=== PATIENT | female | born 1975 | race Caucasian/White ===

== ENCOUNTER → 2020-12-02 | Outpatient (CLI) | payer OTHER | END | disposition home or self-care (01) | LOC: SRD 14:39 | PROVIDERS: ATTEND General Practice | DX: Z12.31 Encounter for screening mammogram for malignant neoplasm of breast (principal); N83.202 Unspecified ovarian cyst, left side | CPT/HCPCS: 76830-TC; 76857; 77067 ==

== ENCOUNTER 2020-12-18 09:08 | Outpatient (CLI) | payer OTHER ==
[2020-12-18 09:51] LABS: HEMATOCRIT 42.9 % (36-48); HEMOGLOBIN 13.9 g/dL (12.0-16.0); MEAN CORPUSCULAR HEMOGLOBIN 27 pg (27-31); MEAN CORPUSCULAR HGB CONC 32 % (32-36); MEAN CORPUSCULAR VOLUME 84 fL (79.0-98.0); PLATELET COUNT (AUTO) 228 K/uL (130-430); RED BLOOD CELL COUNT(AUTO) 5.14 MIL/uL (4.2-6.2); RED CELL DISTRIBUTION WIDTH 13.6 % (9.0-15.0); WHITE BLOOD COUNT (AUTO) 5.6 K/uL (4.8-10.8)
[2020-12-18 10:14] LABS: ALBUMIN 3.8 g/dL (3.4-4.8); CALCIUM 8.3 mg/dL (8.4-11.0); CREATININE 0.77 mg/dL (0.55-1.30); POTASSIUM 3.7 mmol/L (3.5-5.1); THYROID STIMULATING HORMONE 1.32 uIu/mL (0.36-3.74); TOTAL BILIRUBIN 0.4 mg/dL (0.0-1.0)
== END 2020-12-18 20:48 | disposition home or self-care (01) ==
LOC: SLB 09:08
PROVIDERS: ATTEND General Practice
DX: Z00.00 Encounter for general adult medical examination without abnormal findings (principal)
CPT/HCPCS: 36415; 80053; 80061; 82306; 83051; 84443-TC; 85014-TC; 85048; 85049-TC

== ENCOUNTER 2021-05-10 07:36 | Outpatient (CLI) | payer OTHER | END 2021-05-10 21:19 | disposition home or self-care (01) | LOC: SUS 07:36 | PROVIDERS: ATTEND General Practice | DX: N83.201 Unspecified ovarian cyst, right side (principal); R14.0 Abdominal distension (gaseous) | CPT/HCPCS: 76830-TC; 76857 ==

== ENCOUNTER 2021-05-21 07:34 | Outpatient (CLI) | payer OTHER | END 2021-05-21 21:40 | disposition home or self-care (01) | LOC: SLB 07:34 | PROVIDERS: ATTEND General Practice | DX: N91.2 Amenorrhea, unspecified (principal) | CPT/HCPCS: 36415; 84702 ==

== ENCOUNTER 2024-03-19 07:31 | Day surgery (SDC) | payer OTHER ==
[~2024-03-19] VITALS: Ht 165.1 cm; Wt 72.6 kg
[2024-03-19] MEDS ORDERED: MEPERIDINE 100 MG INJ. 100 MG/ML VIAL ONE (07:42)
[2024-03-19] MEDS ORDERED: MIDAZOLAM HCL 5 MG/5 ML VIAL ONE ×2 (07:42→10:16)
[2024-03-19 08:29] LABS: HCG,QUAL RESULT NEGATIVE (NEGATIVE)
[2024-03-19] MEDS ORDERED: DIPHENHYDRAMINE INJ 50 MG/ML VIAL ONE (10:18)
[2024-03-19 10:27] VITALS: O2SAT 100
[2024-03-19 13:44] VITALS: BP_SYST 108; PULSE 69; RESP 18
== END 2024-03-19 10:30 | disposition home or self-care (01) ==
LOC: SDS 07:31 → SMU 07:32 → SDS 10:30
PROVIDERS: ATTEND Student in an Organized Health Care Education/Training Program
DX: Z12.11 Encounter for screening for malignant neoplasm of colon (principal); K29.50 Unspecified chronic gastritis without bleeding; B96.81 Helicobacter pylori [H. pylori] as the cause of diseases classified elsewhere; R13.10 Dysphagia, unspecified; R14.0 Abdominal distension (gaseous); K21.9 Gastro-esophageal reflux disease without esophagitis; K64.8 Other hemorrhoids; K64.4 Residual hemorrhoidal skin tags
CPT/HCPCS: 45385; 43239; 99152; 84703; 88305; 88312; 88313; 99153; G0378; J1200; J2250; J2175